=== PATIENT | female | born 1965 | race Caucasian/White ===

== ENCOUNTER 2017-10-21 02:12 | Emergency (ER) | payer MEDICAID ==
[~2017-10-21] VITALS: Ht 160 cm; Wt 59.0 kg
[2017-10-21 02:23] VITALS: Ht 160 cm; Wt 59.0 kg
[2017-10-21 02:46] LABS: BASOPHIL % 0.3 % (0-2); PLATELET COUNT 271 x10^3mcL (130-400); RED CELL DISTRIBUTION WIDTH 14.5 % (11.5-14.5)
[2017-10-21 02:54] LABS: CARBON DIOXIDE 29.2 mmol/L (21-32); CHLORIDE SERUM 104 mmol/L (98-107); CREATININE SERUM 0.6 mg/dL (0.6-1.0); GFR1 > 60 mL/min; GLUCOSE SERUM 103 mg/dL (74-106); POTASSIUM SERUM 3.3 mmol/L (3.5-5.1); SODIUM SERUM 137 mmol/L (136-145)
[2017-10-21 02:58] LABS: ALBUMIN 3.3 g/dL (3.4-5.0); ALKALINE PHOSPHATASE 144 U/L (46-116); ALT/SGPT 25 U/L (14-59); AST/SGOT 16 U/L (15-37); BILIRUBIN TOTAL 0.4 mg/dL (0.20-1.00); TOTAL PROTEIN, SERUM 6.9 g/dL (6.4-8.2)
[2017-10-21 05:20] VITALS: BP 133/78
== END 2017-10-21 05:20 | disposition home or self-care (01) ==
LOC: ED 02:12
PROVIDERS: Emergency Medicine
DX: R07.89 Other chest pain (principal); E78.00 Pure hypercholesterolemia, unspecified
CPT/HCPCS: 36415